=== PATIENT | female | born 1995 | race Caucasian/White ===

== ENCOUNTER 2017-06-23 07:09 | Emergency (ER) | payer MEDICAID ==
[~2017-06-23 07:09] MED LIST: FERR325T PO; IBUP600 PO; PRENCAP6 PO
[2017-06-23 07:12] VITALS: BP 139/95; PULSE 89; RESP 14; TEMP 98.5; O2SAT 100
[2017-06-23] MEDS ORDERED: IBUPROFEN 800 MG TAB PO ONE (07:45)
[2017-06-23] MEDS ORDERED: ROBA500T PO (08:49)
[2017-06-23] MEDS ORDERED: IBUP1TAB7 PO (08:49)
--- NOTE | 2017-06-23 08:49 | PD ---
HPI Chief Complaint: Fall Time Seen by Provider: 07:20 Travel History International Travel<30 days: No Contact w/Intl Traveler<30days: No Traveled to known affect area: No History of Present Illness HPI 21-year-old female presents to the emergency department with complaint of tailbone pain, right hip pain and right knee pain after falling down 5 stairs 2 days ago. She said she landed on her butt and slid down the stairs. Denies hitting her head or loss of consciousness. Denies neck pain or back pain. Denies local paresis, incontinence, saddle anesthesias. Denies paresthesias, loss of sensation, decreased range of motion, decreased strength to all extremities. Denies chest pain, shortness of breath, abdominal pain, nausea, vomiting. Has been ambulatory on the affected extremity. Right hip pain radiates all the way down to her right ankle. Denies ankle injury or pain. Has been taking ibuprofen for symptom management. Pain is constant and worse with movement. Rates pain 9/10. Better with lying down on her left side. Currently on menses. Denies significant past medical history. No known allergies. No primary care provider. Has no other medical complaints. No other modifying factors or associated signs and symptoms. PFSH Past Medical History Medical History: Denies Significant Hx Immunizations Current: Yes Influenza Vaccination: No ?: Not Past Surgical History Surgical History: No Previous Surgery Social History Alcohol Use: No Tobacco Use: No Substance Use: No Allergies-Medications (Allergen,Severity, Reaction): Coded Allergies: No Known Allergies (Verified Adverse Reaction, Unknown, 06/23/17) Reported Meds & Prescriptions Reported Meds & Active Scripts Active Robaxin (Methocarbamol) 500 Mg Tab 500 Mg PO QID PRN Ibuprofen 800 Mg Tab 800 Mg PO Q6HR PRN Review of Systems Except as stated in HPI: all other systems reviewed are Neg Physical Exam Narrative GENERAL: Well-nourished, well-developed black female patient, in no acute distress; afebrile, nontoxic-appearing SKIN: Warm and dry. HEAD: Atraumatic. Normocephalic. EYES: Pupils equal and round. No scleral icterus. No injection or drainage. ENT: Mucosa pink and moist. Airway patent. NECK: Trachea midline. CARDIOVASCULAR: Regular rate. RESPIRATORY: No accessory muscle use. GASTROINTESTINAL: Rounded. MUSCULOSKELETAL: Right knee nonedematous, nonerythematous, and without ecchymosis; full range of motion and flexion to 90; point tenderness to the lateral aspect; joint stable with negative drawer test; no obvious deformity. Right ankle without tenderness on palpation range of motion. Right lateral hip with tenderness on palpation; without erythema, edema, ecchymosis; without tenderness on abduction; no leg length discrepancy; with full range of motion. Right Lower extremity is supple and non-tense with 2+ pedal pulse and sensory intact and without erythema or edema. No obvious deformity. No cyanosis. BACK: Tenderness on palpation to the coccyx; without erythema, edema, ecchymosis to the area. No point tenderness on palpation of the lumbar spine. NEUROLOGICAL: Awake and alert. Oriented 3. No obvious cranial nerve deficits. Motor grossly within normal limits. Normal speech. PSYCHIATRIC: Appropriate mood and affect; insight and judgment normal. Data Data Last Documented VS Vital Signs Date Time Temp Pulse Resp B/P (MAP) Pulse Ox O2 Delivery O2 Flow Rate FiO2 06/23/17 07:12 98.5 89 14 139/95 (110) 100 Orders Orders Ibuprofen (Motrin) (06/23/17 07:45) Hip, Uni(Ap&Lat) W Ap Pelvis (06/23/17 07:35) Knee, Complete (4vws) (06/23/17 07:35) Sacrum And Coccyx (06/23/17 ) Crutches (06/23/17 09:22) Splint Or Brace Apply/Monitor (06/23/17 09:22) Ed Discharge Order (06/23/17 09:22) MDM Medical Decision Making Medical Screen Exam Complete: Yes Emergency Medical Condition: Yes Medical Record Reviewed: Yes Differential Diagnosis Fracture, sprain, contusion, injury Narrative Course 21-year-old female with coccyx pain, right hip pain, right knee pain after falling down 5 stairs 2 days ago. Denies hitting her head or loss of consciousness. Denies neck pain or back pain. Currently on menses. Coccyx x- ray, right hip with AP pelvis x-ray, right knee x-ray ordered. Ibuprofen ordered. 09: Right hip with AP pelvis x-ray, coccyx and sacrum x-ray, right knee x-ray all are all unremarkable. Right knee Brennen bandage provided for support. Crutches for pressure support. Instructed patient to follow-up in 7-10 days if symptoms persist. Ibuprofen and Robaxin prescribed for home. Instructed patient to follow up with primary care provider. Patient verbalizes understanding and agreement with treatment plan. Patient is medically cleared and stable for discharge. Discussed reasons to return to the emergency department. Patient agrees with treatment plan. The patients vital signs are stable and the patient is stable for outpatient follow-up and treatment. Patient discharged home, stable and in no acute distress. Diagnosis Primary Impression: Fall Qualified Codes: W19.XXXA - Unspecified fall, initial encounter Additional Impressions: Injury of hip, right Qualified Codes: S79.911A - Unspecified injury of right hip, initial encounter Coccyx contusion Qualified Codes: S30.0XXA - Contusion of lower back and pelvis, initial encounter Right knee injury Qualified Codes: S89.91XA - Unspecified injury of right lower leg, initial encounter Referrals: [facility] Primary Care Physician Patient Instructions: Coccyx Injury (ED), Fall Prevention (ED), General Instructions, Hip Sprain (ED), Knee Sprain (ED) Additional Instructions: Tylenol or ibuprofen as needed and as directed to reduce pain and inflammation Rest, ice, compress, and elevate extremity to decrease pain and inflammation Knee brace for support Crutches for support Avoid aggravating activity; increase activity as tolerated Follow-up with primary care provider Follow-up with orthopedics Return to the emergency department immediately with worsening symptoms Med/Other Pt SpecificInfo: Prescription(s) given Scripts Methocarbamol (Robaxin) 500 Mg Tab 500 MG PO QID Y for MUSCLE SPASM, #30 TAB 0 Refills Prov: Polly Macedo 06/23/17 Ibuprofen (Ibuprofen) 800 Mg Tab 800 MG PO Q6HR Y for PAIN, #30 TAB 0 Refills Prov: Polly Macedo 06/23/17 Disposition: 01 DISCHARGE HOME Condition: Stable Polly Macedo Jun 23, 2017 08:49
--- NOTE | 2017-06-23 09:17 | RADRPT ---
EXAM DATE/TIME: 06/23/2017 08:36 [facility] COMPARISON: No previous studies available for comparison. INDICATIONS : Fell down staris Friday, pain right hip and sacrum. MEDICAL HISTORY : None. SURGICAL HISTORY : None. ENCOUNTER: Initial ACUITY: 3 days PAIN SCORE: 5/10 LOCATION: Right hip. FINDINGS: Examination of the right hip was performed with AP Pelvis. The primary and secondary trabecular patrice gely of the femoral neck is intact. The hip joint is of normal width without significant sclerosis or bony hypertrophy. The acetabulum is grossly intact. CONCLUSION: No acute disease. Wilbert Kumar MD on June 23, 2017 at 9:07 Board Certified Radiologist. This report was verified electronically.
--- NOTE | 2017-06-23 09:17 | RADRPT ---
EXAM DATE/TIME: 06/23/2017 08:42 [facility] COMPARISON: No previous studies available for comparison. INDICATIONS : Fell down stairs Friday, pain mendial knee. MEDICAL HISTORY : None. SURGICAL HISTORY : None. ENCOUNTER: Initial ACUITY: 3 days PAIN SCORE: 5/10 LOCATION: Right knee. FINDINGS: Four view examination of the right knee demonstrates no evidence of fracture or dislocation. Bony mi neralization is normal. The articular surfaces are intact. The suprapatellar soft tissues have a no rmal configuration. CONCLUSION: No acute disease. Wilbert Kumar MD on June 23, 2017 at 9:15 Board Certified Radiologist. This report was verified electronically.
--- NOTE | 2017-06-23 09:17 | RADRPT ---
EXAM DATE/TIME: 06/23/2017 08:39 [facility] COMPARISON: No previous studies available for comparison. INDICATIONS : Friday fell down stairs pain sacrum and coccyx, right hip. MEDICAL HISTORY : None. SURGICAL HISTORY : None. ENCOUNTER: Initial ACUITY: 3 days PAIN SCORE: 9/10 LOCATION: Sacrum and coccyx FINDINGS: Two-view examination of the sacrum and coccyx demonstrates no evidence of fracture or malalignment. The sacral ala and foramina appear symmetric and intact. The coccyx appears unremarkable. The preve rtebral soft tissues are within normal limits. CONCLUSION: No acute disease. Wilbert Kumar MD on June 23, 2017 at 9:15 Board Certified Radiologist. This report was verified electronically.
== END 2017-06-23 09:37 | disposition home or self-care (01) ==
LOC: NEPD 07:09
DX: S79.911A Unspecified injury of right hip, initial encounter (principal); S30.0XXA Contusion of lower back and pelvis, initial encounter; S89.91XA Unspecified injury of right lower leg, initial encounter; W10.9XXA Fall (on) (from) unspecified stairs and steps, initial encounter
CPT/HCPCS: 72220; 73502; 73564; 99284; E0113